=== PATIENT | male | born 1955 | race Caucasian/White ===

== ENCOUNTER 2016-10-04 18:06 | Emergency (ER) | payer OTHER ==
[2016-10-04] MEDS ORDERED: NS 1,000 ML IV ONE (18:17)
[2016-10-04] MEDS ORDERED: ONDANSETRON 4 MG/2 ML VIAL IVP ONE (18:20)
[2016-10-04 18:34] LABS: % IMMATURE GRANULYOCYTES 0.3 % (0.0-1.1); ABSOLUTE IMMATURE GRANULOCYTES 0.02 10^3/uL (0.00-0.10); ADD DIFF? NO; ADD MORPH? NO; ADD SCAN? NO; ATYPICAL LYMPHOCYTE FLAG 0 (0-99); FRAGMENT RBC FLAG 0 (0-99); HEMATOCRIT 42.8 % (40.0-51.0); HEMOGLOBIN 15.3 g/dL (13.7-17.5); LEFT SHIFT FLG 0 (0-99); LIPEMIA HEMOLYSIS FLAG 90 (0-99); MEAN CELL HEMOGLOBIN 31.8 pg (27.9-34.1); MEAN CELL HEMOGLOBIN CONCENTR. 35.7 g/dL (32.4-36.7); MEAN PLATELET VOLUME 9.1 fL (8.7-11.7); PLATELET CLUMPS FLAG 0 (0-99); PLATELET COUNT 207 10^3/uL (150-400); RED BLOOD CELL COUNT 4.81 10^6/uL (4.40-6.38); RED CELL DISTRIBUTION WIDTH 12.1 % (11.5-15.2)
[2016-10-04] MEDS ORDERED: KETOROLAC 30 MG/1 ML SDV IVP ONE (18:40)
--- NOTE | 2016-10-04 18:46 | EDPHY ---
H & P Stated Complaint: LLQ abdominal pain x 2 days. States "feels like diverticulitis " Time Seen by Provider: 10/04/16 18:12 HPI/ROS: This patient reports gradual onset of left lower quadrant pain over the past 2 days it is achy in nature and has increased intensity over the past day now sharp at times. Peak intensity 8/10 with movement. At rest it is mild in intensity. The pain feels identical to a episode of diverticulitis in 2009. The patient had colonoscopy in July 2016 revealed multiple colonic diverticulum. He has not taken any analgesics today. He did take Dulcolax without significant change but he denies any significant constipation reports daily bowel movements without significant change in caliber or consistency. The color has changed slightly more green but he attributes this to new vitamins that he is taking. His brought him in by private vehicle. ROS: No high fevers chills or other constitutional symptoms HEENT: No URI symptoms Pulmonary: No shortness of breath or chest pain or cough. Cardiovascular: No heart palpitations or chest pain GI: No upper belly pain. He has some mild nausea but no vomiting. He still tolerating p.o. intake. : No testicular pain or swelling. No hematuria or dysuria. Integumentary: No complaints 10 point ROS is otherwise negative Source: Patient, Family (He is accompanied by his and daughter) Exam Limitations: No limitations - Personal History Current Tetanus Diphtheria and Acellular Pertussis (TDAP): Yes Tetanus Vaccine Date: within 10 years - Medical/Surgical History Hx Asthma: No Hx Chronic Respiratory Disease: No Hx Diabetes: No Hx Cardiac Disease: No Hx Renal Disease: No Hx Cirrhosis: No Hx Alcoholism: No Hx HIV/AIDS: No Hx Splenectomy or Spleen Trauma: No Other PMH: HTN, left knee surgery, high cholesterol, diverticulitis - Social History Smoking Status: Never smoked Alcohol Use: Rarely Drug Use: None - Physical Exam Exam: General Appearance: Alert, no distress. Eyes: Pupils equal and round no pallor or injection. ENT, Mouth: Mucous membranes moist. Respiratory: There are no retractions, lungs are clear to auscultation. Cardiovascular: Regular rate and rhythm. Gastrointestinal: Hyperactive bowel sounds, moderate left lower quadrant tenderness with no rebound tenderness. No organomegaly. No upper belly tenderness. No right lower quadrant tenderness : No testicular tenderness Back: No CVA tenderness Neurological: GCS 15 with no focal deficits. Skin: Warm and dry, no rashes. Musculoskeletal: Neck is supple nontender. Extremities are symmetrical, full range of motion. Psychiatric: Mood and affect are normal. DIFFERENTIAL DIAGNOSIS: After history and physical exam differential diagnosis was considered for diverticulitis, constipation, abdominal wall strain, kidney stone, UTI Constitutional: Initial Vital Signs Temperature (C) 36.7 C 10/04/16 18:09 Heart Rate 82 10/04/16 18:09 Respiratory Rate 18 10/04/16 18:09 Blood Pressure 162/111 H 10/04/16 18:09 O2 Sat (%) 97 10/04/16 18:09 O2 Delivery Mode Room Air Allergies/Adverse Reactions: No Known Allergies Allergy (Verified 10/04/16 18:19) Home Medications: Medication Instructions Recorded Amoxicillin/Clavulanate Pot 875 mg PO BID #14 tab 10/04/16 [Augmentin 875 MG TAB (*)] Verapamil 10/04/16 Medical Decision Making ED Course/Re-evaluation: IV normal saline bolus Toradol 30 mg IV with partial relief of his left lower quadrant discomfort. Review of labs reveals normal CBC and urinalysis. Basic metabolic panel with minimal elevations glucose otherwise normal. Discussion: Given patient's prior history of diverticulitis with multiple diverticula on recent colonoscopy and classic symptoms and physical exam findings, I think that he has early diverticulitis currently. I counseled him regarding this. Given lack of fever leukocytosis or rebound tenderness, I do not think he has abscess, rupture or other complications. He is given a 1st dose of Augmentin uterine 75 mg p. o.. Will continue him on this for 7 days. - Data Points Laboratory Results: Laboratory Results 10/04/16 18:23 10/04/16 18:23 10/04/16 10/04/16 10/04/16 18:50 18:23 18:23 WBC 6.96 10^3/uL 10^3/uL (3.80-9.50) RBC 4.81 10^6/uL 10^6/uL (4.40-6.38) Hgb 15.3 g/dL g/dL (13.7-17.5) Hct 42.8 % % (40.0-51.0) MCV 89.0 fL fL (81.5-99.8) MCH 31.8 pg pg (27.9-34.1) MCHC 35.7 g/dL g/dL (32.4-36.7) RDW 12.1 % % (11.5-15.2) Plt Count 207 10^3/uL 10^3/uL (150-400) MPV 9.1 fL fL (8.7-11.7) Neut % (Auto) 71.9 % % (39.3-74.2) Lymph % (Auto) 17.4 % % (15.0-45.0) [place] % (Auto) 9.1 % % (4.5-13.0) Eos % (Auto) 1.0 % % (0.6-7.6) Baso % (Auto) 0.3 % % (0.3-1.7) Nucleat RBC Rel Count 0.0 % % (0.0-0.2) Absolute Neuts (auto) 5.01 10^3/uL 10^3/uL (1.70-6.50) Absolute Lymphs (auto) 1.21 10^3/uL 10^3/uL (1.00-3.00) Absolute Monos (auto) 0.63 10^3/uL 10^3/uL (0.30-0.80) Absolute Eos (auto) 0.07 10^3/uL 10^3/uL (0.03-0.40) Absolute Basos (auto) 0.02 10^3/uL 10^3/uL (0.02-0.10) Absolute Nucleated RBC 0.00 10^3/uL 10^3/uL (0-0.01) Immature Gran % 0.3 % % (0.0-1.1) Immature Gran # 0.02 10^3/uL 10^3/uL (0.00-0.10) Sodium 137 mEq/L mEq/L (134-144) Potassium 3.6 mEq/L mEq/L (3.5-5.2) Chloride 97 mEq/L mEq/L (97-110) Carbon Dioxide 27 mEq/l mEq/l (22-31) Anion Gap 13 mEq/L mEq/L (8-16) BUN 14 mg/dL mg/dL (7-23) Creatinine 0.9 mg/dL mg/dL (0.7-1.3) Estimated GFR > 60 Glucose 109 mg/dL H mg/dL (70-100) Calcium 9.0 mg/dL mg/dL (8.5-10.4) Urine Color YELLOW Urine Appearance CLEAR Urine pH 6.5 (5.0-7.5) Ur Specific [place] 1.015 (1.002-1.030) Urine Protein NEGATIVE (NEGATIVE) Urine Ketones NEGATIVE (NEGATIVE) Urine Blood NEGATIVE (NEGATIVE) Urine Nitrate NEGATIVE (NEGATIVE) Urine Bilirubin NEGATIVE (NEGATIVE) Urine Urobilinogen 0.2 EU EU (0.2-1.0) Ur Leukocyte Esterase NEGATIVE (NEGATIVE) Urine Glucose NEGATIVE (NEGATIVE) Medications Given: Discontinued Medications Sodium Chloride (Ns) 1,000 mls @ 0 mls/hr IV EDNOW ONE; Wide Open PRN Reason: Protocol Stop: 10/04/16 18:18 Last Admin: 10/04/16 18:24 Dose: 1,000 mls Ketorolac Tromethamine (Toradol) 30 mg IVP EDNOW ONE Stop: 10/04/16 18:41 Last Admin: 10/04/16 18:45 Dose: 30 mg Ondansetron HCl (Zofran) 4 mg IVP EDNOW ONE Stop: 10/04/16 18:21 Last Admin: 10/04/16 18:24 Dose: 4 mg Departure - Departure Disposition: Home, Routine, Self-Care Clinical Impression: Diverticulitis Qualifiers: Diverticulitis site: unspecified part of intestinal tract Diverticulitis bleeding: without bleeding Diverticulitis complication: without perforation or abscess Qualified Code(s): K57.92 - Diverticulitis of intestine, part unspecified, without perforation or abscess without bleeding Condition: Good Instructions: Diverticulitis (ED), Diverticulitis Diet (ED) Additional Instructions: Diagnosis: Diverticulitis Plan: Drink plenty fluids and eat plenty of fiber Ibuprofen for discomfort if needed Tylenol in addition if needed Augmentin antibiotic Take a probiotic while on this to prevent diarrhea. Return for any significant worsening despite the treatment plan. Referrals: Faith Mott MD [Primary Care Provider] - As per Instructions Prescriptions: Amoxicillin/Clavulanate Pot [Augmentin 875 MG TAB (*)] 875 mg PO BID #14 tab
[2016-10-04 18:47] LABS: ANION GAP 13 mEq/L (8-16); CARBON DIOXIDE 27 mEq/l (22-31); CHLORIDE 97 mEq/L (97-110); CREATININE 0.9 mg/dL (0.7-1.3); GLOMERULAR FILTRATION RATE > 60; GLUCOSE 109 mg/dL (70-100); POTASSIUM 3.6 mEq/L (3.5-5.2); SODIUM 137 mEq/L (134-144)
[2016-10-04 19:02] LABS: COLOR YELLOW; LEUKOCYTE ESTERASE,URINE NEGATIVE (NEGATIVE); NITRITE,URINE NEGATIVE (NEGATIVE); PH,URINE 6.5 (5.0-7.5)
[2016-10-04] MEDS ORDERED: AMOXICILLIN/CLAVULANATE POT 875/125 MG TAB PO ONE (19:15)
[2016-10-04 19:29] VITALS: BP 151/78; PULSE 76; RESP 16; TEMP 98.8; O2SAT 96
== END 2016-10-04 19:30 | disposition home or self-care (01) ==
LOC: CED 18:06
DX: K57.92 Diverticulitis of intestine, part unspecified, without perforation or abscess without bleeding (principal); I10 Essential (primary) hypertension; E86.9 Volume depletion, unspecified
CPT/HCPCS: 80048-PO; 81003-PO; 85025-PO; 96374; J1885; J2405